=== PATIENT | male | born 1955 | race Caucasian/White ===

== ENCOUNTER 2021-07-01 23:35 | Inpatient (IN) | payer MEDICAID ==
[~2021-07-01] VITALS: Ht 167.6 cm; Wt 58.2 kg
[2021-07-02 01:59] LABS: CHLORIDE 112 mEq/L (98-107)
[2021-07-02 02:06] LABS: BETA HYDROXYBUTYRATE 0.1 mMol/L (0.0-0.3)
[2021-07-02 02:13] LABS: BASOPHILS % 0.4 % (0.0-2.0); EOSINOPHILS % 1.2 % (0.0-5.0); HEMATOCRIT. 29.5 % (42.0-52.0); LYMPHOCYTES % 19.6 % (20.0-50.0); MEAN CORPUSCULAR HEMOGLOBIN 29.1 pg (28.0-32.0); MEAN CORPUSCULAR VOLUME 86.2 fL (80.0-94.0); MEAN PLATELET VOLUME 9.7 fl (7.4-10.4); NEUTROPHILS % 68.8 % (40.0-76.0); PLATELET 185 x1000/uL (130-400); RED BLOOD CELL COUNT 3.43 mill/uL (4.7-6.1); RED CELL DISTRIBUTION WIDTH 13.3 % (11.6-14.6)
[2021-07-02 02:16] LABS: CLARITY URINE CLEAR (CLEAR); COLOR URINE YELLOW (YELLOW); KETONES URINE NEGATIVE (NEGATIVE); LEUKOCYTE ESTERASE URINE NEGATIVE (NEGATIVE); NITRITE URINE NEGATIVE (NEGATIVE); OCCULT BLOOD URINE 2+ (NEGATIVE); PH URINE 5.5 (4.5-8.0); PROTEIN URINE 3+ (NEGATIVE); SPECIFIC GRAVITY URINE 1.022 (1.005-1.030); UROBILINOGEN URINE 0.2 E.U./dL (0.2-1.0)
[2021-07-02] MEDS ORDERED: ASPIRIN 325MG EC TABLET PO ONE (03:00)
[2021-07-02] MEDS ORDERED: FUROSEMIDE 40MG/4ML VIAL IV ONE (03:00)
[2021-07-02] MEDS ORDERED: NITROGLYCERIN OINT 1GM/INCH UDPKT TD ONE (03:00)
[2021-07-02] MEDS ORDERED: ENOXAPARIN 80MG/0.8ML SYR SUBCUT ONE (04:30)
[2021-07-02] MEDS ORDERED: MAGNESIUM/ALUMINUM HYDROXIDE/SIMETHICONE 30ML UDC PO PRN (10:45)
[2021-07-02] MEDS ORDERED: CLONIDINE 0.1MG TABLET PO PRN (10:45)
[2021-07-02] MEDS ORDERED: ACETAMINOPHEN 325MG TABLET PO PRN (10:45)
[2021-07-02] MEDS ORDERED: ONDANSETRON HCL 4MG/2ML INJ IV PRN (10:45)
[2021-07-02 12:00] VITALS: BP 182/88
[2021-07-02 12:45] LABS: *AMPHETAMINES SCREEN URINE NEGATIVE (NEGATIVE); *BENZODIAZEPINES SCREEN URINE NEGATIVE (NEGATIVE); *COCAINE SCREEN URINE NEGATIVE (NEGATIVE); CANNABINOID URINE SCREEN NEGATIVE (NEGATIVE); METHADONE URINE SCREEN NEGATIVE (NEGATIVE); PHENCYCLIDINE URINE SCREEN NEGATIVE (NEGATIVE)
[2021-07-02 12:46] LABS: *BARBITURATES SCREEN URINE NEGATIVE (NEGATIVE); OPIATES URINE SCREEN NEGATIVE (NEGATIVE)
[2021-07-02 15:52] VITALS: BP 182/188
[2021-07-02 16:00] VITALS: BP 193/90
[2021-07-02] MEDS ORDERED: MORPHINE SULFATE 2 MG/ML CPJ (NOT FOR IM USE) IV PRN (16:00)
[2021-07-02] MEDS ORDERED: NALOXONE HCL 0.4MG/ML VIAL IV PRN (16:15)
[2021-07-02] MEDS ORDERED: DEXTROSE 50% WATER 50ML SYRINGE IV PRN (17:00)
[2021-07-02] MEDS: BLOOD SUGAR DIAGNOSTIC STRIP TEST SCH ×2 (17:02→21:24)
[2021-07-02] MEDS: INSULIN LISPRO 100 UNITS/ML SUBCUT SCH ×2 (17:03→21:00)
[2021-07-02] MEDS: HYDRALAZINE HCL 25MG TABLET PO SCH ×2 (17:12→21:24)
[2021-07-02] MEDS: LISINOPRIL 20MG TABLET PO SCH (17:12)
[2021-07-02] MEDS: PANTOPRAZOLE SODIUM 40 MG/VIAL IV SCH (17:12)
[2021-07-02] MEDS: METOCLOPRAMIDE HCL 10MG/2ML VIAL IV SCH ×2 (17:13→23:01)
[2021-07-02] MEDS: FUROSEMIDE 40MG/4ML VIAL IVP SCH (17:13)
[2021-07-02 20:00] VITALS: BP 134/71
[2021-07-03] VITALS: BP 130/69
[2021-07-03 03:42] VITALS: BP 140/70
[2021-07-03] MEDS: HYDRALAZINE HCL 25MG TABLET PO SCH ×2 (06:03→13:43)
[2021-07-03] MEDS: METOCLOPRAMIDE HCL 10MG/2ML VIAL IV SCH ×2 (06:03→13:42)
[2021-07-03] MEDS: FUROSEMIDE 40MG/4ML VIAL IVP SCH (06:03)
[2021-07-03] MEDS: BLOOD SUGAR DIAGNOSTIC STRIP TEST SCH ×2 (06:20→13:16)
[2021-07-03] MEDS: INSULIN LISPRO 100 UNITS/ML SUBCUT SCH ×2 (07:50→13:43)
[2021-07-03 07:56] VITALS: BP 156/72
[2021-07-03] MEDS ORDERED: ASPIRIN 81MG EC TABLET PO SCH (09:00)
[2021-07-03] MEDS: LISINOPRIL 20MG TABLET PO SCH (09:26)
[2021-07-03] MEDS: PANTOPRAZOLE SODIUM 40 MG/VIAL IV SCH (09:27)
[2021-07-03 12:00] VITALS: BP 155/81
[2021-07-03] MEDS ORDERED: METF-416 MT (15:30)
[2021-07-03] MEDS ORDERED: LISI20TA31 PO (15:30)
[2021-07-03] MEDS ORDERED: FURO-151 MT (15:30)
[2021-07-03 17:28] VITALS: BP 140/70
[2021-07-04] MEDS ORDERED: FAMOTIDINE 20MG TABLET PO SCH (09:00)
== END 2021-07-03 18:33 | disposition home or self-care (01) | DRG 48 ==
LOC: ER 23:35 → 6WST 07-02 13:43
PROVIDERS: ADMIT Internal Medicine; ATTEND Internal Medicine
DX: E10.43 Type 1 diabetes mellitus with diabetic autonomic (poly)neuropathy (principal); I50.31 Acute diastolic (congestive) heart failure; E44.1 Mild protein-calorie malnutrition; K31.84 Gastroparesis; D64.9 Anemia, unspecified; E78.5 Hyperlipidemia, unspecified; E10.65 Type 1 diabetes mellitus with hyperglycemia; I11.0 Hypertensive heart disease with heart failure; K64.9 Unspecified hemorrhoids; Z20.822 Contact with and (suspected) exposure to COVID-19; Z79.4 Long term (current) use of insulin; Z68.20 Body mass index [BMI] 20.0-20.9, adult
CPT/HCPCS: 36415; 71045; 80053; 80305; 81003; 82010; 82962; 83036; 83880; 84484; 85025; 87426; 93306; 93970; 99291; C9113; J1650; J1815; J1940; J2270; J2765

== ENCOUNTER 2022-03-07 14:38 | Inpatient (IN) | payer MEDICAID ==
[~2022-03-07] VITALS: Ht 162.6 cm; Wt 74.8 kg
[~2022-03-07 14:38] MED LIST: FURO-151 MT; LISI20TA31 PO; METF-416 MT
[2022-03-07] MEDS ORDERED: HYDRALAZINE 20MG/ML VIAL IV ONE (20:15)
[2022-03-07 20:20] LABS: BASOPHILS % 0.4 % (0.0-2.0); EOSINOPHILS % 5.9 % (0.0-5.0); HEMOGLOBIN. 8.9 g/dL (14.0-18.0); LYMPHOCYTES % 18.2 % (20.0-50.0); MEAN CORPUSCULAR HEMOGLOBIN 29.7 pg (28.0-32.0); MEAN CORPUSCULAR VOLUME 86.9 fL (80.0-94.0); MEAN PLATELET VOLUME 8.8 fl (7.4-10.4); MONOCYTES % 9.3 % (2.0-8.0); NEUTROPHILS % 66.2 % (40.0-76.0); PLATELET 170 x1000/uL (130-400); RED BLOOD CELL COUNT 2.99 mill/uL (4.7-6.1); RED CELL DISTRIBUTION WIDTH 14.6 % (11.6-14.6)
[2022-03-07 20:31] LABS: CHLORIDE 107 mEq/L (98-107)
[2022-03-07] MEDS ORDERED: ASPIRIN 325MG TABLET PO ONE (22:30)
[2022-03-07] MEDS ORDERED: HYDRALAZINE 20MG/ML VIAL IV NR (22:45)
[2022-03-08] VITALS (7 sets, daily range): BP systolic 122–174; BP diastolic 72–81
[2022-03-08] MEDS ORDERED: ONDANSETRON HCL 4MG/2ML INJ IV PRN (01:30)
[2022-03-08] MEDS ORDERED: MAGNESIUM/ALUMINUM HYDROXIDE/SIMETHICONE 30ML UDC PO PRN (01:30)
[2022-03-08] MEDS ORDERED: GUAIFENESIN 200MG/10ML SUGAR FREE UDC PO PRN (01:30)
[2022-03-08] MEDS ORDERED: ACETAMINOPHEN 325MG TABLET PO PRN ×2 (01:30)
[2022-03-08] MEDS ORDERED: DEXTROSE 50% WATER 50ML SYRINGE IV PRN (01:30)
[2022-03-08] MEDS ORDERED: DOCUSATE SODIUM 100MG CAPSULE PO PRN (01:30)
[2022-03-08] MEDS ORDERED: NALOXONE HCL 0.4MG/ML VIAL IV PRN (01:45)
[2022-03-08] MEDS: HYDROCODONE/ACETAMINOPHEN 5/325MG TABLET PO PRN ×3 (03:24→16:03)
[2022-03-08] MEDS: BLOOD SUGAR DIAGNOSTIC STRIP TEST SCH ×4 (05:44→21:12)
[2022-03-08] MEDS: HYDRALAZINE 20MG/ML VIAL IV PRN ×2 (08:33→21:15)
[2022-03-08] MEDS: ENOXAPARIN 40MG/0.4ML SYR SUBCUT SCH (08:33)
[2022-03-08] MEDS: FAMOTIDINE 20MG TABLET PO SCH ×2 (08:33→21:13)
[2022-03-08] MEDS: ASPIRIN 81MG TABLET PO SCH (08:33)
[2022-03-08] MEDS: INSULIN LISPRO 100 UNITS/ML SUBCUT SCH ×4 (08:35→21:14)
[2022-03-08] MEDS ORDERED: METOPROLOL TARTRATE 25MG TABLET PO NR (12:00)
[2022-03-08 12:22] LABS: FERRITIN 37 ng/mL (22-322)
[2022-03-08 12:45] LABS: CREATINE KINASE MB FRACTION 2.6 ng/mL (0.5-3.6)
[2022-03-08 13:06] LABS: PHOSPHORUS 3.5 mg/dL (2.5-4.9); T4 FREE 0.87 ng/dL (0.76-1.46)
[2022-03-08] MEDS ORDERED: NITROGLYCERIN SPRAY/4.9GM CAN TL NR (13:15)
[2022-03-08 14:11] LABS: CREATINE KINASE MB FRACTION 2.4 ng/mL (0.5-3.6)
[2022-03-08] MEDS ORDERED: IOHEXOL-350 100 ML BOTTLE ONE (14:43)
[2022-03-08 16:17] LABS: VITAMIN B12 SERUM 461 pg/mL (211-911)
[2022-03-08] MEDS: AMLODIPINE 10MG TABLET PO SCH (17:41)
[2022-03-08] MEDS: LISINOPRIL 20MG TABLET PO SCH (17:42)
[2022-03-08] MEDS: FUROSEMIDE 40MG TABLET PO SCH (17:42)
[2022-03-08 19:54] LABS: CREATINE KINASE MB FRACTION 2.5 ng/mL (0.5-3.6)
[2022-03-08] MEDS: ATORVASTATIN CALCIUM 20MG TABLET PO SCH (21:13)
[2022-03-09] VITALS: BP 134/52
[2022-03-09 04:00] VITALS: BP 127/53
[2022-03-09 05:29] LABS: BASOPHILS % 0.5 % (0.0-2.0); EOSINOPHILS % 4.8 % (0.0-5.0); HEMATOCRIT. 26.7 % (42.0-52.0); HEMOGLOBIN. 9.1 g/dL (14.0-18.0); LYMPHOCYTES % 18.3 % (20.0-50.0); MEAN CORPUSCULAR HEMOGLOBIN 29.8 pg (28.0-32.0); MEAN CORPUSCULAR VOLUME 87.1 fL (80.0-94.0); MEAN PLATELET VOLUME 8.7 fl (7.4-10.4); NEUTROPHILS % 68.4 % (40.0-76.0); PLATELET 181 x1000/uL (130-400); RED BLOOD CELL COUNT 3.06 mill/uL (4.7-6.1); RED CELL DISTRIBUTION WIDTH 14.6 % (11.6-14.6)
[2022-03-09] MEDS: BLOOD SUGAR DIAGNOSTIC STRIP TEST SCH ×4 (07:41→21:03)
[2022-03-09 08:00] VITALS: BP 157/68
[2022-03-09] MEDS: INSULIN LISPRO 100 UNITS/ML SUBCUT SCH ×4 (08:10→21:02)
[2022-03-09] MEDS: LISINOPRIL 20MG TABLET PO SCH (08:50)
[2022-03-09] MEDS: FUROSEMIDE 40MG TABLET PO SCH (08:50)
[2022-03-09] MEDS: FAMOTIDINE 20MG TABLET PO SCH (08:50)
[2022-03-09] MEDS: AMLODIPINE 10MG TABLET PO SCH (08:50)
[2022-03-09] MEDS: ENOXAPARIN 40MG/0.4ML SYR SUBCUT SCH (09:00)
[2022-03-09] MEDS ORDERED: IODIXANOL 320MG/ML 100 ML BOTTLE IV ONE (09:00)
[2022-03-09] MEDS: ASPIRIN 81MG TABLET PO SCH (09:00)
[2022-03-09] MEDS ORDERED: LIDOCAINE HCL/PF 1% 10 MG/ML 5ML VIAL ONE (09:09)
[2022-03-09] MEDS ORDERED: VERAPAMIL HCL 2.5 MG/1 ML 2ML VIAL IV ONE (09:10)
[2022-03-09] MEDS ORDERED: DIPHENHYDRAMINE 50MG/ML VIAL ONE (09:10)
[2022-03-09] MEDS ORDERED: FENTANYL CITRATE/PF 50MCG/ML 2ML VIAL ONE (09:27)
[2022-03-09] MEDS ORDERED: MIDAZOLAM HCL 2 MG/2 ML VIAL ONE (09:27)
[2022-03-09] MEDS ORDERED: HEPARIN 1000 UNITS/ML 10ML ONE (09:30)
[2022-03-09 09:45] LABS: CHLORIDE 106 mEq/L (98-107)
[2022-03-09] MEDS ORDERED: HYDRALAZINE 20MG/ML VIAL ONE (09:48)
[2022-03-09 10:03] LABS: HDL CHOLESTEROL 85 mg/dL (40-59); LDL CHOLESTEROL 103 mg/dL (5-100); PHOSPHORUS 3.8 mg/dL (2.5-4.9)
[2022-03-09] MEDS ORDERED: CLOPIDOGREL 75MG TABLET ONE (10:15)
[2022-03-09] MEDS: SODIUM CHLORIDE 0.45% 250 ML IV SCH ×2 (10:45→12:24)
[2022-03-09] MEDS ORDERED: ATROPINE SULFATE 1MG/10ML SYR IV PRN (10:45)
[2022-03-09] MEDS ORDERED: ASPIRIN 325MG TABLET ONE (11:01)
[2022-03-09 12:10] VITALS: BP 153/70
[2022-03-09 16:00] VITALS: BP 120/61
[2022-03-09 20:00] VITALS: BP 134/65
[2022-03-09] MEDS: ATORVASTATIN CALCIUM 20MG TABLET PO SCH (20:59)
[2022-03-10 00:10] VITALS: BP 141/68
[2022-03-10 04:00] VITALS: BP 122/63
[2022-03-10] MEDS: INSULIN LISPRO 100 UNITS/ML SUBCUT SCH ×2 (06:42→07:20)
[2022-03-10] MEDS: BLOOD SUGAR DIAGNOSTIC STRIP TEST SCH ×2 (06:45→12:26)
[2022-03-10 07:22] LABS: BASOPHILS % 0.4 % (0.0-2.0); EOSINOPHILS % 3.8 % (0.0-5.0); HEMATOCRIT. 25.1 % (42.0-52.0); HEMOGLOBIN. 8.5 g/dL (14.0-18.0); LYMPHOCYTES % 14.8 % (20.0-50.0); MEAN CORPUSCULAR HEMOGLOBIN 29.3 pg (28.0-32.0); MEAN CORPUSCULAR VOLUME 86.4 fL (80.0-94.0); MEAN PLATELET VOLUME 9.1 fl (7.4-10.4); MONOCYTES % 7.2 % (2.0-8.0); NEUTROPHILS % 73.8 % (40.0-76.0); PLATELET 184 x1000/uL (130-400); RED BLOOD CELL COUNT 2.91 mill/uL (4.7-6.1); RED CELL DISTRIBUTION WIDTH 14.4 % (11.6-14.6)
[2022-03-10 08:11] VITALS: BP 126/61
[2022-03-10 08:12] LABS: CHLORIDE 107 mEq/L (98-107)
[2022-03-10 08:48] LABS: PHOSPHORUS 4.2 mg/dL (2.5-4.9)
[2022-03-10] MEDS ORDERED: CLOPIDOGREL 75MG TABLET PO SCH (09:00)
[2022-03-10] MEDS ORDERED: ASPIRIN 81MG TABLET PO SCH (09:00)
[2022-03-10] MEDS ORDERED: FAMOTIDINE 20MG TABLET PO SCH (09:00)
[2022-03-10] MEDS: FUROSEMIDE 40MG TABLET PO SCH (09:33)
[2022-03-10] MEDS: LISINOPRIL 20MG TABLET PO SCH (09:33)
[2022-03-10] MEDS: AMLODIPINE 10MG TABLET PO SCH (09:34)
[2022-03-10] MEDS: ENOXAPARIN 40MG/0.4ML SYR SUBCUT SCH (09:34)
[2022-03-10 10:00] VITALS: BP 125/71
[2022-03-10 12:00] VITALS: BP 144/66
[2022-03-10] MEDS ORDERED: INSULIN LISPRO 100 UNITS/ML SUBCUT SCH (12:20)
[2022-03-10 13:57] VITALS: BP 141/72
[2022-03-11] MEDS ORDERED: ENOXAPARIN 30MG/0.3ML SYR SUBCUT SCH (09:00)
== END 2022-03-10 14:15 | disposition home or self-care (01) | DRG 174 ==
LOC: ER 14:38 → MICUSO 22:30 → 7WST 03-08 03:10 → 3WST 03-09 11:15
PROVIDERS: ADMIT Family Medicine; ATTEND Family Medicine
PROC: 027034Z Dilation of Coronary Artery, One Artery with Drug-eluting Intraluminal Device, Percutaneous Approach (ICD-10-PCS; principal; 2022-03-09)
PROC: 4A023N7 Measurement of Cardiac Sampling and Pressure, Left Heart, Percutaneous Approach (ICD-10-PCS; 2022-03-09)
PROC: B211YZZ Fluoroscopy of Multiple Coronary Arteries using Other Contrast (ICD-10-PCS; 2022-03-09)
DX: I21.4 Non-ST elevation (NSTEMI) myocardial infarction (principal); I50.43 Acute on chronic combined systolic (congestive) and diastolic (congestive) heart failure; E43 Unspecified severe protein-calorie malnutrition; E87.20 Acidosis, unspecified; D63.1 Anemia in chronic kidney disease; Z20.822 Contact with and (suspected) exposure to COVID-19; I16.1 Hypertensive emergency; D72.819 Decreased white blood cell count, unspecified; E11.22 Type 2 diabetes mellitus with diabetic chronic kidney disease; E11.65 Type 2 diabetes mellitus with hyperglycemia; N18.9 Chronic kidney disease, unspecified; I13.0 Hypertensive heart and chronic kidney disease with heart failure and stage 1 through stage 4 chronic kidney disease, or unspecified chronic kidney disease; E78.5 Hyperlipidemia, unspecified; H54.7 Unspecified visual loss; I25.10 Atherosclerotic heart disease of native coronary artery without angina pectoris; R79.89 Other specified abnormal findings of blood chemistry; Z68.28 Body mass index [BMI] 28.0-28.9, adult
CPT/HCPCS: 36415; 71045; 75571; 80048; 80053; 80061; 82550; 82553; 82607; 82728; 82746; 82962; 83036; 83540; 83550; 83735; 83880; 84100; 84439; 84443; 84484; 85025; 85347; 85379; 87426; 92928; 93005; 93306; 93458; 93970; 99291; C1769; C1874; C1887; C1893; J0360; J1200; J1644; J1650; J1815; J2250; J3010; J3490; Q9967

== ENCOUNTER 2024-09-12 16:59 | Emergency (ER) | payer MEDICAID ==
[~2024-09-12] VITALS: Ht 162.6 cm; Wt 57.0 kg
[~2024-09-12 16:59] MED LIST changes: +AMLO10TA80 PO; +CALC667C PO; +FOLI0.8T42 MT; -FURO-151 MT; +FURO80TA3 MT; +HYDR25TA78 PO; +LABE200T9 PO; -LISI20TA31 PO; -METF-416 MT; +SITA50TA3 MT
[2024-09-12 17:05] VITALS: BP 138/67; TEMP 36.9; O2SAT 100
[2024-09-12 17:06] VITALS: PULSE 78; RESP 18; O2SAT 98
[2024-09-12 19:04] LABS: HEMATOCRIT. 25.3 % (42.0-52.0); HEMOGLOBIN. 8.4 g/dL (14.0-18.0); LYMPHOCYTES % 16.7 % (20.0-50.0); MEAN CORPUSCULAR HEMOGLOBIN 28.6 pg (28.0-32.0); MEAN CORPUSCULAR VOLUME 86.5 fL (80.0-94.0); MEAN PLATELET VOLUME 9.1 fl (7.4-10.4); MONOCYTES % 12.6 % (2.0-8.0); NEUTROPHILS % 65.7 % (40.0-76.0); PLATELET 210 x1000/uL (130-400); RED BLOOD CELL COUNT 2.93 mill/uL (4.7-6.1); RED CELL DISTRIBUTION WIDTH 14.5 % (11.6-14.6); WHITE BLOOD COUNT 2.7 x1000/uL (4.5-11.0)
[2024-09-12 19:18] LABS: POTASSIUM 4.1 mEq/L (3.5-5.1)
[2024-09-12 19:19] LABS: CALCIUM 8.5 mg/dL (8.7-10.4)
[2024-09-12 19:29] LABS: CREATININE 3.1 mg/dL (0.6-1.3)
[2024-09-12] MEDS ORDERED: ONDANSETRON 4MG ODT PO ONE (21:00)
== END 2024-09-13 01:50 | disposition left against medical advice (07) ==
LOC: ER 16:59
DX: R42 Dizziness and giddiness (principal); Z53.21 Procedure and treatment not carried out due to patient leaving prior to being seen by health care provider
CPT/HCPCS: 36415; 80048; 82962; 85025